=== PATIENT | female | born 1935 | race Caucasian/White ===

== ENCOUNTER 2023-09-13 12:35 | Outpatient (CLI) | payer MEDICARE, SELFPAY ==
--- NOTE | ~2023-09-13 | CT_ITS ---
Noncontrast CT scan of the right shoulder CLINICAL HISTORY: Preoperative planning TECHNIQUE: Axial noncontrast imaging of the shoulder was performed. Sagittal and coronal oblique refo rmatted images were constructed. Dose reduction technique was used on this scan by utilizing automate d exposure control and iterative reconstruction technique. The dose-length product (DLP) was 627.27 m Gy-cm. Findings: No acute fracture or dislocation is seen. There is severe glenohumeral joint osteoarthritis , with diffuse joint space narrowing, reactive sclerosis, and prominent inferomedial humeral head ost eophyte. There is additional bony productive change at the inferior margin of the glenoid. There is m inimal AC joint degenerative change. There is probable subcoracoid bursitis. No other gross soft tissue abnormality seen. IMPRESSION: Severe glenohumeral joint osteoarthritis, as detailed above. Subcoracoid bursitis. Reviewed, dictated and finalized at location . [employer]
== END 2023-09-13 12:36 | disposition home or self-care (01) ==
PROVIDERS: Visit Provider Orthopaedic Surgery
DX: M19.011 Primary osteoarthritis, right shoulder (principal)
CPT/HCPCS: 73200

== ENCOUNTER 2023-11-03 11:36 | Outpatient (CLI) | payer MEDICARE, SELFPAY ==
[2023-11-03 12:40] LABS: Basophils Absolute Auto 0.1 K/mm3 (0.0-0.1); Basophils Percent Auto 1.2 % (0.2-1.2); Eosinophils Absolute Auto 0.1 K/mm3 (0-0.3); Eosinophils Percent Auto 1.4 % (0-4.4); Hematocrit 39.6 % (37.0-47.0); Hemoglobin 13.1 g/dL (12.0-15.0); Immature Granulocyte Absolute 0.04 K/mm3 (0.00-0.031); Immature Granulocyte Percent A 0.5 % (0-0.5); Lymphocytes Absolute Auto 1.37 K/mm3 (0.9-3.2); Mean Corpuscular HGB Conc 33.1 g/dl (32-36); Mean Corpuscular Hemoglobin 30.9 pg (26-34); Mean Corpuscular Volume 93.4 fl (80-100); Mean Platelet Volume 9.4 fl (7.4-10.4); Monocytes Percent Auto 11.2 % (2.6-8.5); Neutrophils Percent Auto 69.7 % (45.5-73.1); Platelet Count Result 206 k/mm3 (150-375); Red Blood Count 4.24 M/mm3 (4.2-5.4); Red Cell Distribution Width 12.4 % (11.5-14.5); White Blood Count 8.6 K/mm3 (4.5-10.0)
[2023-11-03 13:49] LABS: MRSA (PCR) NOT DETECTED (NOT DETECTE)
== END 2023-11-03 11:37 | disposition home or self-care (01) ==
LOC: ANHSURGERY 11:41
PROVIDERS: Visit Provider Orthopaedic Surgery
DX: M19.011 Primary osteoarthritis, right shoulder (principal); Z01.818 Encounter for other preprocedural examination
CPT/HCPCS: 36415; 85025; 87641

== ENCOUNTER 2023-12-01 14:46 | Observation (INO) | payer MEDICARE, SELFPAY ==
--- NOTE | 2023-11-03 11:23 | PC.NURSE ---
PRE-OP INSTRUCTIONS, PLEASE READ CAREFULLY Report to the Outpatient Waiting Room, entrance under the green pavilion located off [facility], at time _0830_ on date _11/30/23_. Planned Procedure Time: _1030_. PACK A SMALL OVERNIGHT BAG AND LEAVE IN THE CAR Time changes happen often and if your time is changed the preop area will call you the afternoon before. - You and your visitor will be asked to self-screen and do not enter if you have any COVID symptoms. - A mask is optional within the hospital at this time. Patients may have clear liquids (water, carbonated beverages, clear teas, apple juice) until 3 hours prior to surgery (0730 AM) with a maximum of 20 ounces. - No food from midnight until time of surgery Take the following medications with a SIP of water the morning of surgery: _SERTRALINE_ DO NOT STOP ANY OF YOUR OTHER PRESCRIPTION MEDICATIONS PRIOR TO SURGERY ?EXCEPT THE FOLLOWING Medications to discontinue per DR. LEGER - _ASPIRIN 7 DAYS PRIOR TO SURGERY, Date to take last dose 12/02/23_ Medications to discontinue per ANESTHESIA - _MULTIVITAMIN 3 DAYS PRIOR TO SURGERY, Date to take last dose 11/26/23_ Please no make-up, nail romanian, hairspray, perfume, deodorant, or body powder the day of surgery. No jewelry (including any body piercings) or valuables the day of surgery, leave them at home. Please take a shower or bath the night before, or the morning of, surgery with an antibacterial soap. Wear comfortable, loose fitting clothing. - Jewelry must be removed prior to entering the operating room. Rings and piercings that are not removed may be cut off. - The hospital will not accept responsibility for valuables. - Please leave all valuables, including medications, at home the day of surgery. If you are going home after surgery, a licensed front load trash truck driver must drive you home. - NO public transportation without another adult if you receive anesthesia. - We recommend that an adult stay with you for 24 hours following discharge. - We also recommend that you do not drive, make important decision, drink alcoholic beverages, or take any drugs that were not prescribed by your health care provider for at least 24 hours after your discharge time. Follow any additional instructions given to you from your surgeon. If you or anyone in your household have experienced Covid symptoms in the past week, please notify your surgeon or the nurse liaison at the phone number below for possible testing. Instructions given to _PATIENT & DAUGHTER_and asked if any additional questions and then verbalized understanding. Patient advised to call surgeon office or pre surgery nurse liaison [phone] if any additional questions.
[2023-11-03 11:58] VITALS: BP 162/70; PULSE 88; RESP 18; TEMP 36.9; O2SAT 99; BMI 21.7
[2023-11-30] VITALS (16 sets, daily range): BP systolic 120–162; BP diastolic 55–73; PULSE 85–96; RESP 13–22; TEMP 36.2–37.2; O2SAT 93–100
[2023-11-30] MEDS: ACETAMINOPHEN 500 MG TABLET 1000 MG PO ×3 (06:31→17:51)
--- NOTE | 2023-11-30 06:32 | WPDANESEPPF ---
Anes - Initial Pre Proc Eval Procedure: Operation Date: 11/30/23 07:30 Proposed Procedures p Right Reverse Total Shoulder Arthroplasty - Gavino Ramirez MD Date/Time: 11/30/23 06:32 Surgeon: Gavino Ramirez MD Pre Op Diagnosis: Prim O A Right Shoulder Patient Data Age: 88 Gender: F Height: 1.7 m Weight: 62.9 kg Last Vital Signs Temp 36.9 C 11/03/23 11:58 Pulse 88 11/03/23 11:58 Resp 18 11/03/23 11:58 BP 162/70 H 11/03/23 11:58 Pulse Ox 99 11/03/23 11:58 O2 Del Method Room Air 11/03/23 11:58 Allergies Allergy/AdvReac Type Severity Reaction Status Date / Time cinnamon Allergy Unknown CHEST Verified 11/03/23 11:54 TIGHTNESS Penicillins Allergy Unknown Swelling Verified 11/03/23 11:54 of Lip/Tongue/Throat Sulfa (Sulfonamide AdvReac Unknown Nausea and Verified 11/29/23 08:15 Antibiotics) Vomiting Home Medications Medication Instructions Recorded Confirmed Type aspirin 81 mg chewable tablet 81 mg PO DAILY 05/29/23 11/30/23 History loratadine 10 mg tablet (Claritin) 10 mg PO DAILY PRN Congestion 05/29/23 11/03/23 History multivitamin 1 tablet PO DAILY 05/29/23 11/30/23 History sertraline 25 mg tablet 25 mg PO DAILY 05/29/23 11/30/23 History cyanocobalamin (vitamin B-12) 500 500 mcg PO DAILY 11/03/23 11/30/23 History mcg tablet sodium chloride 500 mg DAILY 11/03/23 11/30/23 History Patient hx anesthesia problems: none Family hx anesthesia problems: none Results Review: All pre-operative results and documents have been reviewed as part of the pre-operative evaluation. [facility] Past Medical History Medical History History of cataract History of stress test History of tumor rectal Surgical History Surgical History History of carpal tunnel release of both wrists History of cholecystectomy History of left shoulder replacement History of right hip replacement Family History Family History Mother Family history of arthritis Social History Social History Smoking status: Never smoker Second hand tobacco smoke exposure: No Alcohol intake: never Substance use: never Substance use type: does not use Do You Feel Safe in your Home?: Yes Lack of Transportation: No Lack of Food: Never True Current Housing: I Have Housing Concerned About Future Housing: No Difficulty Paying Gas/Electric Bills: No Difficulty Paying for Meds: No Currently Unemployed: No Education: High School Diploma/GED Difficulty w/ Childcare or Family Care: No Living arrangements: with family Additional living arrangements comments: LIVES WITH SPOUSE (EDWIGE) AND DAUGHTER THAT IS BLIND Spiritual care concerns: No Anes - Eval Final PreProcedure Day of Procedure 11/30/23 06:32 Patient weight: normal Heart: regular rate and rhythm Lungs: clear to auscultation Airway: Mallampati scale class II Neurological: alert and oriented Last oral intake: >/= 8 hours ASA classification: II Emergent: no Anesthetic plan: proceed Anesthesia type and monitoring: general ETT and standard monitoring Results Review: All pre-operative results and documents have been reviewed as part of the pre-operative evaluation. Informed Consent: The patient's anesthetic plan and its attendant risks and benefits were discussed with the patient/family/POA. Questions were solicited and answers provided to the satisfaction of the patient/family/POA.
[2023-11-30] MEDS: LACTATED RINGERS 1,000 ML 30 ML IV CONT ×2 (06:35→10:41)
[2023-11-30] MEDS: TRANEXAMIC ACID 1,000MG/ISO100 1,000 MG/100 ML BAG 200 MG IVPB (07:02)
--- NOTE | 2023-11-30 07:36 | SUR.PREOP ---
0730-Pt and family aware Dr. Ramirez delayed r/t traffic delay.
--- NOTE | 2023-11-30 07:55 | WPDHPUPDATE1 ---
History and Physical Update Update Date/Time: 11/30/23 07:55 History and Physical has been reviewed, including an updated exam of the patient. There are NO changes in the patient's condition. Risks, benefits, and alternatives have been discussed and questions answered. Patient agrees to proceed with procedure.
[2023-11-30] MEDS: ceFAZolin 2 GM/D5W 50 ML 2 GM/50 ML BAG IVPB ×2 (08:07→17:50)
[2023-11-30] MEDS: SODIUM CHLORIDE 0.9% IV 37.7 ML, MORPHINE SULFATE INJ (*CRX) 2 MG, ROPivacaine HCL 1% 2... INFILTRATE (09:09)
[2023-11-30] MEDS: VANCOMYCIN HCL 1,000 MG VIAL 1000 MG TOPICAL (09:09)
--- NOTE | 2023-11-30 10:38 | W.PM.PROC2 ---
Procedure Note - Detailed Date of Procedure 11/30/23 Pre-op Diagnosis Prim O A Right Shoulder Post-op Diagnosis Same Procedure Performed Reverse total shoulder arthroplasty, right. Surgeon Gavino Ramirez MD Coal Dumping Equipment Operator Kindra Murcia PA-C Anesthesia General and Regional (Interscalene block.) Findings Severe osteoarthritis. Mild cuff involvement. Osteoporosis. Stem fixation supplemented with cement. Retroversion correction 10 degrees. 5 degree augment. Description of Procedure The patient was given an interscalene block in the preoperative area. Preoperative antibiotics were given. The patient was transferred to the operating room and a general anesthetic was administered. The beach chair position was used at 45 degrees. All bony prominences were padded. The head was carefully stabilized on the [facility] head of marketing adometry. A sterile prep and drape was performed in the usual manner with ChloraPrep. A longitudinal incision was created at the anterior shoulder just lateral to the deltopectoral interval. Hydrogen peroxide was placed on the incision and then rinsed after one minute. Careful dissection was performed to expose the interval and protect the cephalic vein. The vein was retracted medially. The upper border of the pectoralis was released. Anterior circumflex vessel branches were suture ligated. The biceps was tenodesed. A subscapularis tenotomy was performed. The inferior capsule was released, exposing the humeral head. Osteophytes were removed. Care was taken to stay on bone to protect the axillary nerve. The anatomic head cut was taken with the oscillating saw. The guide pin was placed, central drilling performed, and the broach trial inserted. The neck anteversion and inclination were carefully assessed. The cut protector was placed, and attention was turned to the glenoid. Retractors were placed. Releases were carried out for exposure. The subscapularis was mobilized, the inferior capsule and long head of triceps released, and the superior and middle glenohumeral ligaments released as well. Labral tissue was resected as needed. The sizing template was used to assess the baseplate position low on the glenoid. A guide pin was placed. Minimal reaming was used to accomplish a flat surface without violating the subchondral bone. Version was corrected according to preoperative templating. The boss was drilled, and the real component was impacted into position. Supplemental locking screws were placed centrally, superiorly, and inferiorly. The glenosphere was impacted into the taper. The proximal humerus was reamed for the inset component. The humeral components were trialed. The real humeral stem, tray, and insert were impacted into position. The shoulder was copiously irrigated periodically with pulsatile lavage. The shoulder was reduced and stability confirmed. 1 gram of Vancomycin powder was placed in the joint. The biceps tenodesis was incorporated with the pectoralis tendon repair. The deltopectoral space was reapproximated with number 1 Vicryl. The remaining tissue was closed with 0 Quill and 2-0 Quill running suture and steri-strips. A sterile silver occlusive dressing and shoulder immobilizer were placed. The patient was transferred to the recovery room. Physician optometrist assistant, Kindra Murcia PA-C, required for surgery; including patient positioning, draping, tissue retraction, maintaining instrument position, cement removal, wound closure, and dressing placement. Implants Shoulder Innovations reverse TSA size 1 stem. +0 polyethylene insert. 5 degree augmented baseplate. 33+3 mm glenosphere. Estimated Blood Loss 150 Drains No Pathology None sent Complications No immediate complications Condition Stable Disposition PACU [facility] Billing Surgery - Charge Forward: Surgery Billing
[2023-11-30] MEDS: fentaNYL CITRATE INJ (*CRX) 100 MCG/2 ML VIAL 25 MCG IV PUSH ×2 (11:12→11:24)
[2023-11-30] MEDS: HYDROmorphone HCL INJ (*CRX) 1 MG/ML SYR 0.2 MG IV PUSH ×2 (11:43→11:57)
--- NOTE | 2023-11-30 13:32 | ADMGEN ---
This patient, Jeanine Mix, was admitted to 3 Med Surg Room 328-01. Patient/family oriented to hospital policies and general routines including ID bracelet, bed and alarms, visiting hours, pain management, procedures, bathroom and other care routines, personal items, smoking policy, room service/diet, and visiting hours. Information on how to activate the Rapid Response Team has been discussed. Patient/Family are encouraged to report perceived risks to care and to ask questions if they do not understand what they are told or what they should do.
[2023-11-30] MEDS: oxyCODONE HCL (*CRX) 5 MG TAB IR PO (13:41)
[2023-11-30] MEDS: SODIUM CHLORIDE 0.9% IV 1,000 ML 125 ML IV CONT (14:23)
--- NOTE | 2023-11-30 15:42 | PM.IMCN ---
Assessment and Plan Assessment and plan (1) Status post reverse total arthroplasty of right shoulder: Code(s): Z96.611 - Presence of right artificial shoulder joint Status: Acute Assessment and Plan: Primary management by orthopedic team. Had reverse total shoulder arthroplasty of the right done by Ashley CHINO today, 10/30/2023. - ambulate with assistance and up to chair - cold flow therapy - use IS - neurovasc checks - see order for intervals - TEDs and SCDs - resume diet - pain management - zofran PRN for nausea - monitor labs in AM - CBC and BMP - bowel regimen: docusate/senna, polyethylene glycol. Add home Metamucil, BSs currently hypoactive. - maintenance fluids: NS 125 mL/hr x8 hrs - prophylactic atb - Ancef Plan Reversed total shoulder arthroplasty of right side done today, 11/30/2023. Continue pain management, monitor labs, PT/OT eval and treat, and likely discharge tomorrow. Home Meds/Chronic Conditions - anxiety/depression: Continue sertraline. - self started B12 and aspirin at home, hold. - hyponatremia: hold salt tabs, no sodium levels currently available. Ordered. No neuro deficits. Diet: Regular GI Prophylaxis: Famotidine p.o. DVT Prophylaxis: SCDs, TEDs Lines: pIV Code Status: Full Code HPI Date of Consult Consult date: 11/30/23 Requesting Physician: Gavino Ramirez MD Primary Care Provider: Katie Michel Consult Narrative Reason for consult: Medical Managment Narrative: 88 y/o F presented here for surgical management of her advanced glenohumeral arthritis of the right shoulder with PMH of anxiety/depression and hyponatremia. Patient was experiencing painful ROM, reduction in strength, and chronic pain in R shoulder. Received only temporary relief from injections into joint. Previously had left shoulder replacement that was uncomplicated and gave patient great results in 2017. After discussion with orthopedist on 11/03/2023, patient elected to move forward with surgical management. Patient had a reverse total shoulder all or arthroplasty of the right done today, 11/30/2023, by Ashley CHINO. no immediate postop complications. Preop labs on 11/03/2023 showed no anemia and no leukocytosis. Currently denies any post operative nausea or vomiting, no numbness or tingling in RUE/hand, and mild discomfort. Initial VS at presentation: 98.9 F, HR 87, RR 20, 126/73, and 99% on RA. Pre-op imaging: Shoulder CT of right side showed severe glenohumeral joint osteoarthritis and subcoracoid bursitis. Review of Systems Review of Systems: All systems reviewed & are unremarkable except as noted in HPI and below PMFSH Past Medical History Medical History Anxiety and depression Hyponatremia Rectal tumor Surgical History Surgical History History of carpal tunnel release of both wrists History of cataract History of cholecystectomy History of left shoulder replacement History of right hip replacement Family History Family History Mother Family history of arthritis Social History Social History Smoking status: Never smoker Second hand tobacco smoke exposure: No Alcohol intake: never Substance use: never Substance use type: does not use Do You Feel Safe in your Home?: Yes Lack of Transportation: No Lack of Food: Never True Current Housing: I Have Housing Concerned About Future Housing: No Difficulty Paying Gas/Electric Bills: No Difficulty Paying for Meds: No Currently Unemployed: No Education: High School Diploma/GED Difficulty w/ Childcare or Family Care: No Living arrangements: with family Additional living arrangements comments: LIVES WITH SPOUSE (EDWIGE) AND DAUGHTER THAT IS BLIND Spiritual care concerns: No
--- NOTE | 2023-11-30 17:13 | PC.NURSE ---
Brianna Roles watching my patients while I am off the floor for meeting from 1500 to 1630
[2023-11-30] MEDS: SENNA/DOCUSATE SODIUM TABLET 2 TAB PO (17:50)
[2023-11-30] MEDS: MELOXICAM 7.5 MG TABLET PO (17:51)
[2023-11-30] MEDS: ASPIRIN 81 MG ENTERIC TABLET PO (17:51)
[2023-11-30] MEDS: FAMOTIDINE 20 MG TABLET PO (20:49)
[2023-12-01] VITALS: BP 108/63; PULSE 87; RESP 20; TEMP 36.6; O2SAT 96
--- NOTE | ~2023-12-01 | XR_ITS ---
EXAMINATION: XR shoulder RT min 2V DATE: 11/30/2023 11:01 INDICATION: Right reverse total shoulder arthroplasty TECHNIQUE: AP and transscapular Y views of the right shoulder were obtained. COMPARISON: None FINDINGS: Reverse right total shoulder arthroplasty which appears well seated in near-anatomic alignment. No fr acture. Mild osteoarthritis at the right acromioclavicular joint. Expected soft tissue gas at the ope rative bed. Mild linear atelectasis at the right lung base. IMPRESSION: Right reverse total shoulder arthroplasty in near-anatomic alignment, negative for postoperative purp oses. Reviewed, dictated and finalized at location [facility]. [employer] IMPRESSION: Right reverse total shoulder arthroplasty in near-anatomic alignment, negative for postoperative purposes.
[2023-12-01] MEDS: ACETAMINOPHEN 500 MG TABLET 1000 MG PO ×5 (00:17→23:27)
[2023-12-01] MEDS: ceFAZolin 2 GM/D5W 50 ML 2 GM/50 ML BAG IVPB ×2 (00:20→08:27)
[2023-12-01 06:00] VITALS: BP 118/50; PULSE 83; RESP 14; TEMP 36.8; O2SAT 97
[2023-12-01 06:25] LABS: Basophils Absolute Auto 0.1 K/mm3 (0.0-0.1); Basophils Percent Auto 0.5 % (0.2-1.2); Hematocrit 33.9 % (37.0-47.0); Hemoglobin 11.3 g/dL (12.0-15.0); Immature Granulocyte Absolute 0.08 K/mm3 (0.00-0.031); Immature Granulocyte Percent A 0.5 % (0-0.5); Lymphocytes Percent Auto 5.4 % (18.3-44.2); Mean Corpuscular HGB Conc 33.3 g/dl (32-36); Mean Corpuscular Hemoglobin 31.2 pg (26-34); Mean Corpuscular Volume 93.6 fl (80-100); Mean Platelet Volume 9.8 fl (7.4-10.4); Monocytes Absolute Auto 1.7 K/mm3 (0.1-0.6); Monocytes Percent Auto 10.1 % (2.6-8.5); Neutrophils Absolute Auto 13.9 K/mm3 (1.3-6.7); Neutrophils Percent Auto 83.5 % (45.5-73.1); Platelet Count Result 201 k/mm3 (150-375); Red Blood Count 3.62 M/mm3 (4.2-5.4); Red Cell Distribution Width 12.2 % (11.5-14.5); White Blood Count 16.7 K/mm3 (4.5-10.0)
[2023-12-01 06:31] LABS: Anion Gap 5 mmol/L (8-16); Blood Urea Nitrogen 13 mg/dL (7-17); Calcium 8.5 mg/dL (8.4-10.2); Carbon Dioxide 27 mmol/L (22-30); Chloride 96 mmol/L (98-107); Estimated CRCL calculation 55 ml/min; Estimated Glomerular Filt Rate > 60; Glucose 115 mg/dL (65-110); Potassium 3.8 mmol/L (3.4-5.0); Sodium 128 mmol/L (137-145)
--- NOTE | 2023-12-01 07:22 | P.PNAN_ITS ---
Anes - Prog Note Post-Op Date/Time: 12/01/23 07:22 Cardiovascular status: normal Respiratory status: normal Airway patency: baseline Mental status: baseline Post-Op hydration status: normal Vital Signs: Last Vital Signs Temp 98.3 F 12/01/23 06:00 Pulse 83 12/01/23 06:00 Resp 14 12/01/23 06:00 BP 118/50 L 12/01/23 06:00 Pulse Ox 97 12/01/23 06:00 O2 Del Method Room Air 11/30/23 15:24 O2 Flow Rate 10 11/30/23 11:00 Pain Score (VAS): 0 I/O: Intake & Output 11/30/23 11/30/23 12/01/23 15:59 23:59 07:59 Intake Total 550 290 50 Balance 550 290 50 Laboratory Tests 12/01/23 05:32 12/01/23 05:32 11/30/23 12/01/23 06:30 05:32 WBC 16.7 H RBC 3.62 L Hgb 11.3 L Hct 33.9 L MCV 93.6 MCH 31.2 MCHC 33.3 RDW 12.2 Plt Count 201 MPV 9.8 Immature Gran % (Auto) 0.5 Neut % (Auto) 83.5 H Lymph % (Auto) 5.4 L [place] % (Auto) 10.1 H Eos % (Auto) 0.0 Baso % (Auto) 0.5 Lymph # (Auto) 0.90 [place] # (Auto) 1.7 H Eos # (Auto) 0.0 Baso # (Auto) 0.1 Abs Immat Gran (auto) 0.08 H Absolute Neuts (auto) 13.9 H Absolute Nucleated RBC 0.0 Nucleated RBC % 0.0 Sodium 128 L Potassium 3.8 Chloride 96 L Carbon Dioxide 27 Anion Gap 5 L BUN 13 Creatinine 0.60 L Estim Creat Clear Calc 55 Estimated GFR > 60 Glucose 115 H Calcium 8.5 Blood Type A Positive Antibody Screen Negative Post-procedural complaints: none Patient Feedback: Patient satisfied with anesthetic care. Other Findings: sore throat
[2023-12-01] MEDS: SENNA/DOCUSATE SODIUM TABLET 2 TAB PO ×2 (08:30→17:16)
[2023-12-01] MEDS: PSYLLIUM POWDER PACKET 1 PACKET PO (08:30)
[2023-12-01] MEDS: MELOXICAM 7.5 MG TABLET PO ×2 (08:30→17:16)
[2023-12-01] MEDS: SODIUM CHLORIDE 500 MG TABLET BY MOUTH ×2 (08:30→17:16)
[2023-12-01] MEDS: SERTRALINE HCL 25 MG TABLET PO (08:30)
[2023-12-01] MEDS: ASPIRIN 81 MG ENTERIC TABLET PO ×2 (08:30→17:16)
[2023-12-01] MEDS: CYCLOBENZAPRINE HCL 10 MG TABLET PO (08:30)
[2023-12-01] MEDS: SODIUM CHLORIDE 500 MG TABLET PO (08:30)
[2023-12-01] MEDS: FAMOTIDINE 20 MG TABLET PO ×2 (08:30→20:11)
--- NOTE | 2023-12-01 08:31 | PCPTNOTE ---
Attempted to see aptient for PT, however patient was eating breakfast.
--- NOTE | 2023-12-01 09:41 | PM.PNORT ---
Progress Note: A&P Assessment and Plan (1) Status post reverse total arthroplasty of right shoulder: Code(s): Z96.611 - Presence of right artificial shoulder joint Status: Acute (2) Hyponatremia: Code(s): E87.1 - Hypo-osmolality and hyponatremia Status: Acute Plan Postop day 1: Right reverse total shoulder arthroplasty. Patient tolerated procedure well. She does have hyponatremia. Sodium level 128 today. Will continue her sodium tablets. She does feel off balance and dizzy at times. We will see how she does with physical therapy today. Pain manageable with pain medication. No numbness or tingling. She was at home with her who is unable to take care of himself. She also lives with a daughter who is blind. She is concerned about returning home while off balance and dizzy. Subjective Subjective Date/Time Seen: 12/01/23 09:41 Interval history: Patient resting comfortably in bed. She is postoperative day 1 after reverse total shoulder arthroplasty. She notes she feels off balance and dizzy at times. No other complaints. Shoulder has little pain. No numbness or tingling in her fingers. Review of Systems Review of Systems: All systems reviewed & are unremarkable except as noted in HPI and below Exam Narrative: Elderly 88-year-old normal weight female. Resting comfortably in bed. Wearing sling. Dressing dry and intact without drainage. Mild ecchymosis. Mild warmth. Mild swelling. Fires deltoid. Neurovascularly intact. Objective Data Vital Signs Vital Signs: Vital Signs - 24 hr 11/30/23 10:41 11/30/23 10:50 11/30/23 11:00 Temperature Pulse Rate 85 89 87 Respiratory Rate 22 H 22 H 16 Blood Pressure 132/55 L 131/58 L 150/71 H Pulse Oximetry 100 100 99 Oxygen Delivery Simple Face Mask Simple Face Mask Simple Face Mask Oxygen Flow Rate 10 10 10 11/30/23 11:15 11/30/23 11:30 11/30/23 11:45 Temperature Pulse Rate 88 89 87 Respiratory Rate 13 13 14 Blood Pressure 143/66 H 142/62 H 139/62 Pulse Oximetry 97 93 95 Oxygen Delivery Room Air Room Air Room Air Oxygen Flow Rate 11/30/23 12:00 11/30/23 12:15 11/30/23 12:30 Temperature Pulse Rate 90 94 94 Respiratory Rate 13 13 15 Blood Pressure 131/63 138/67 136/64 Pulse Oximetry 95 93 94 Oxygen Delivery Room Air Room Air Room Air Oxygen Flow Rate 11/30/23 15:24 11/30/23 13:00 11/30/23 13:15 Temperature 97.7 F 98.2 F Pulse Rate 96 96 Respiratory Rate 16 18 Blood Pressure 133/63 142/64 H Pulse Oximetry 94 96 Oxygen Delivery Room Air Oxygen Flow Rate 11/30/23 13:45 11/30/23 14:45 11/30/23 18:27 Temperature 97.7 F 97.7 F 97.1 F L Pulse Rate 93 93 94 Respiratory Rate 18 18 18 Blood Pressure 131/62 131/58 L 120/60 Pulse Oximetry 95 94 96 Oxygen Delivery Oxygen Flow Rate 11/30/23 20:00 12/01/23 00:00 12/01/23 06:00 Temperature 98 F 97.8 F 98.3 F Pulse Rate 94 87 83 Respiratory Rate 16 20 14 Blood Pressure 121/59 L 108/63 118/50 L Pulse Oximetry 96 96 97 Oxygen Delivery Oxygen Flow Rate 12/01/23 08:30 Temperature Pulse Rate Respiratory Rate Blood Pressure Pulse Oximetry Oxygen Delivery Room Air Oxygen Flow Rate Intake/Output Intake/Output: Intake & Output 11/28/23 11/29/23 11/30/23 12/01/23 23:59 23:59 23:59 23:59 Intake Total 840 50 Balance 840 50 Meds/Results Medications: Active Medications Generic Name Dose Route Start Last Admin Trade Name Freq PRN Reason Stop Dose Admin Acetaminophen 1,000 mg 11/30/23 13:00 12/01/23 05:17 Acetaminophen 500 Mg Tablet PO 1,000 mg Q6HR DARRIUS Administration Aspirin 81 mg 11/30/23 17:00 12/01/23 08:30 Aspirin 81 Mg Enteric Tablet PO 81 mg BID DARRIUS Administration Cyclobenzaprine HCl 10 mg 11/30/23 12:42 12/01/23 08:30 Cyclobenzaprine Hcl 10 Mg Tablet PO 10 mg Q8H PRN Administration Spasms Diphenhydramine HCl 25 mg 11/30/23 12:42
--- NOTE | 2023-12-01 10:18 | PC.NURSE ---
I spoke with patient regarding the rumors about her isolation status. Family did not request anything. Pt states that she is not immunocompromised. Pt states she is not ill. Pt has a grandson, who does not live with her or visit her at the hospital, who is immunocompromised. She is concerned that she will contract something while in the hospital and could pass it to her grandson if and when she visits him. Pt requests to be on reverse isolation so that she does not contract anything. Pt was educated about immunity, et al.; however, pt insists that she be on reverse isolation so as not to kill her grandson. Reverse isolation initiated.
[2023-12-01 10:27] VITALS: BP 140/54; PULSE 82; RESP 20; TEMP 36.8; O2SAT 98
--- NOTE | 2023-12-01 13:20 | PM.IMCN ---
Assessment and Plan Assessment and plan (1) Status post reverse total arthroplasty of right shoulder: Code(s): Z96.611 - Presence of right artificial shoulder joint Status: Acute Assessment and Plan: Primary management by orthopedic team. Had reverse total shoulder arthroplasty of the right done by Ashley CHINO today, 10/30/2023. - ambulate with assistance and up to chair - cold flow therapy - use IS - neurovasc checks - see order for intervals - TEDs and SCDs - resume diet - pain management - zofran PRN for nausea - monitor labs in AM - CBC and BMP - bowel regimen: docusate/senna, polyethylene glycol. Add home Metamucil, BSs currently hypoactive. - maintenance fluids: NS 125 mL/hr x8 hrs - prophylactic atb - Ancef - 12/01: Continued management by Orthopedics as primary for post-operative pain and further management of shoulder. Elevation of WBC's today to 16.7. Suspect inflammatory response and not a true infectious rise. (2) Hyponatremia: Code(s): E87.1 - Hypo-osmolality and hyponatremia Status: Acute Assessment and Plan: Acute on chronic. Pt has had hyponatremia in the past and does take a salt tablet daily. This was held for surgery, and Sodium is 128. Salt tablet reordered and will check in AM. If greater than or equal to 130, will discharge to continue home meds. HPI Date of Consult Consult date: 12/01/23 Requesting Physician: Gavino Ramirez MD Primary Care Provider: Katie Michel Consult Narrative Narrative: Jeanine Mix is a 88 year old female of which the Hospitalist service is consulted by Orthopedic surgery for management of medical conditions post reverse Right shoulder surgery with Dr. Ramirez yesterday. Pt. reports she feel well and has some pain to the operative shoulder but no other acute complaints or symptoms. Her labs this AM are significant for Sodium of 128. She has been without her Salt tablets as she was NPO for elective surgery. Review of Systems Review of Systems: All systems reviewed & are unremarkable except as noted in HPI and below PMFSH Past Medical History Medical History Anxiety and depression Hyponatremia Rectal tumor Surgical History Surgical History History of carpal tunnel release of both wrists History of cataract History of cholecystectomy History of left shoulder replacement History of right hip replacement Family History Family History Mother Family history of arthritis Social History Social History Smoking status: Never smoker Second hand tobacco smoke exposure: No Alcohol intake: never Substance use: never Substance use type: does not use Do You Feel Safe in your Home?: Yes Lack of Transportation: No Lack of Food: Never True Current Housing: I Have Housing Concerned About Future Housing: No Difficulty Paying Gas/Electric Bills: No Difficulty Paying for Meds: No Currently Unemployed: No Education: High School Diploma/GED Difficulty w/ Childcare or Family Care: No Living arrangements: with family Additional living arrangements comments: LIVES WITH SPOUSE (EDWIGE) AND DAUGHTER THAT IS BLIND Spiritual care concerns: No Meds Home Medications and Allergies Home Medications Medication Instructions Recorded Confirmed Type aspirin 81 mg chewable tablet 81 mg PO DAILY 05/29/23 11/30/23 History loratadine 10 mg tablet (Claritin) 10 mg PO DAILY PRN Congestion 05/29/23 11/03/23 History multivitamin 1 tablet PO DAILY 05/29/23 11/30/23 History sertraline 25 mg tablet 25 mg PO DAILY 05/29/23 11/30/23 History cyanocobalamin (vitamin B-12) 500 500 mcg PO DAILY 11/03/23 11/30/23 History mcg tablet sodium chloride 500 mg DAILY 11/03/23 11/30/23
[2023-12-01 14:27] VITALS: BP 127/46; PULSE 75; RESP 20; TEMP 36.6; O2SAT 96
[2023-12-01 22:00] VITALS: BP 119/46; PULSE 81; RESP 14; TEMP 36.8; O2SAT 95
[2023-12-02] MEDS: ACETAMINOPHEN 500 MG TABLET 1000 MG PO ×2 (05:27→11:38)
[2023-12-02 06:00] VITALS: BP 121/51; PULSE 79; RESP 14; TEMP 36.6; O2SAT 96
[2023-12-02 06:18] LABS: Basophils Absolute Auto 0.1 K/mm3 (0.0-0.1); Basophils Percent Auto 0.8 % (0.2-1.2); Eosinophils Absolute Auto 0.1 K/mm3 (0-0.3); Hematocrit 36.2 % (37.0-47.0); Hemoglobin 11.6 g/dL (12.0-15.0); Immature Granulocyte Absolute 0.06 K/mm3 (0.00-0.031); Immature Granulocyte Percent A 0.6 % (0-0.5); Lymphocytes Absolute Auto 1.48 K/mm3 (0.9-3.2); Lymphocytes Percent Auto 15.3 % (18.3-44.2); Mean Corpuscular Hemoglobin 30.4 pg (26-34); Mean Corpuscular Volume 94.8 fl (80-100); Mean Platelet Volume 9.7 fl (7.4-10.4); Monocytes Absolute Auto 1.1 K/mm3 (0.1-0.6); Monocytes Percent Auto 11.6 % (2.6-8.5); Neutrophils Absolute Auto 6.8 K/mm3 (1.3-6.7); Neutrophils Percent Auto 70.7 % (45.5-73.1); Platelet Count Result 193 k/mm3 (150-375); Red Blood Count 3.82 M/mm3 (4.2-5.4); Red Cell Distribution Width 12.3 % (11.5-14.5); White Blood Count 9.7 K/mm3 (4.5-10.0)
[2023-12-02 06:40] LABS: Alanine Aminotransferase 13 U/L (6-35); Albumin Level 3.3 g/dL (3.5-5.1); Alkaline Phosphatase 53 U/L (38-126); Anion Gap 3 mmol/L (8-16); Aspartate Amino Transferase 36 U/L (14-36); Bilirubin,Total 0.7 mg/dL (0.2-1.3); Blood Urea Nitrogen 14 mg/dL (7-17); Calcium 8.8 mg/dL (8.4-10.2); Carbon Dioxide 31 mmol/L (22-30); Chloride 98 mmol/L (98-107); Estimated CRCL calculation 47 ml/min; Estimated Glomerular Filt Rate > 60; Glucose 88 mg/dL (65-110); Potassium 3.7 mmol/L (3.4-5.0); Sodium 132 mmol/L (137-145)
[2023-12-02] MEDS: SODIUM CHLORIDE 500 MG TABLET BY MOUTH (09:46)
[2023-12-02] MEDS: SERTRALINE HCL 25 MG TABLET PO (09:50)
[2023-12-02] MEDS: FAMOTIDINE 20 MG TABLET PO (09:50)
[2023-12-02] MEDS: ASPIRIN 81 MG ENTERIC TABLET PO (09:50)
[2023-12-02] MEDS: MELOXICAM 7.5 MG TABLET PO (09:50)
[2023-12-02] MEDS: SENNA/DOCUSATE SODIUM TABLET 2 TAB PO (09:50)
[2023-12-02] MEDS: SODIUM CHLORIDE 500 MG TABLET PO (09:50)
[2023-12-02] MEDS: PSYLLIUM POWDER PACKET 1 PACKET PO (09:50)
[2023-12-02] MEDS: polyethylene glycoL 3350 17 GM POWD.PACK PO (09:50)
--- NOTE | 2023-12-02 11:58 | PM.DS ---
DS: Admitting Diagnosis Discharge Date 12/02/2023 Admitting Diagnosis Djd shoulder. DS: Discharge Diagnosis Discharge Diagnosis (1) Status post reverse total arthroplasty of right shoulder: Code(s): Z96.611 - Presence of right artificial shoulder joint Status: Acute (2) DJD of right shoulder: Qualifiers: Osteoarthritis type: primary Qualified Code(s): M19.011 - Primary osteoarthritis, right shoulder Code(s): M19.011 - Primary osteoarthritis, right shoulder Status: Acute (3) Hyponatremia: Code(s): E87.1 - Hypo-osmolality and hyponatremia Status: Acute DS: Summary Hospital Course Reason for hospitalization: Total shoulder arthroplasty. Hospital Course: Tolerated surgery well. Progressed appropriately with therapy. Hyponatremia resolved POD#2 Status at Discharge Functional status at discharge: independent ambulation Overall status at discharge: patient is progressing back to baseline Time Spent with Patient Time attestation: Total time spent providing and/or coordinating discharge services: Exam Const: General: no acute distress Resp: Effort & Inspection: normal respiratory effort Skin: Other: Wound healing well. Mepilex dressing intact. No hematoma or drainage. Sling applied appropriately. Deltoid muscle fires. Axillary nerve sensation intact. Good bag filler strength. No edema. radial pulse palpable. Neuro: Motor exam (neuro): 5/5 motor strength present throughout Sensory Exam: normal sensation Psych: Mental Status: mental status grossly normal Speech and movement: Normal speech and movement present DS: Data Data Completed and Pending Labs on day of discharge: Labs from last 24 hours 12/02/23 12/02/23 05:37 05:31 WBC 9.7 RBC 3.82 L Hgb 11.6 L Hct 36.2 L MCV 94.8 MCH 30.4 MCHC 32.0 RDW 12.3 Plt Count 193 MPV 9.7 Immature Gran % (Auto) 0.6 H Neut % (Auto) 70.7 Lymph % (Auto) 15.3 L Barton % (Auto) 11.6 H Eos % (Auto) 1.0 Baso % (Auto) 0.8 Lymph # (Auto) 1.48 Barton # (Auto) 1.1 H Eos # (Auto) 0.1 Baso # (Auto) 0.1 Abs Immat Gran (auto) 0.06 H Absolute Neuts (auto) 6.8 H Absolute Nucleated RBC 0.0 Nucleated RBC % 0.0 Sodium 132 L Potassium 3.7 Chloride 98 Carbon Dioxide 31 H Anion Gap 3 L BUN 14 Creatinine 0.70 Estim Creat Clear Calc 47 Estimated GFR > 60 Glucose 88 Calcium 8.8 Magnesium 2.0 Total Bilirubin 0.7 AST 36 ALT 13 Alkaline Phosphatase 53 Total Protein 6.0 L Albumin 3.3 L Discharge Plan Discharge Attending physician on discharge: Gavino Ramirez Consulting providers: Erna Sigala; Alena Hurst Discharging Clinician: Gavino Ramirez Patient Disposition: Home Health Service Activity: february shower Diet: as tolerated Wound Care Instructions: follow printed instructions Discharge Instructions: See green instruction sheets Care Coordination: Patient to have [facility] PT/OT eval and treat, and custodial. They can be reached at [phone] if you have any questions. They will call you to schedule their first visit. RN Please fax discharge instructions to [phone]. Patient Instructions: Antibiotic Form Stand Alone Forms: General Discharge Information, General Discharge Instructions Follow-up/Referrals: Kindra Murcia PA [Physician Analysis Intern] - Discharge Medications: New meloxicam 15 mg tablet 15 mg PO DAILY Qty: 30 0RF Rx Instructions: Cut in half. Take 1/2 in morning and 1/2 at night. Take with food. Stop if stomach upset. aspirin 81 mg tablet,delayed release (DR/EC) 81 mg PO BID 14 Days Qty: 28 0RF oxycodone-acetaminophen 5-325 mg tablet 1 - 2 tablet PO Q4-6H MDD 6 PRN (Reason: pain) Qty: 30 0RF Continued multivitamin Tablet 1 tablet PO DAILY aspirin 81 mg tablet,chewable 81 mg PO DAILY sertraline 25 mg ta
[2023-12-02 13:30] VITALS: BP 141/64; PULSE 87; RESP 18; TEMP 36.4; O2SAT 98
== END 2023-12-02 13:50 | disposition home health service (06) ==
LOC: ANHSURGERY 15:11 → ANH3MEDSUR 15:11
PROVIDERS: Nurse Practitioner Adult Health; Physician Assistant Surgical; Admitting Provider Orthopaedic Surgery; Visit Provider Orthopaedic Surgery
PROC: (CPT 23472; principal; 2023-11-30 07:30)
DX: M19.011 Primary osteoarthritis, right shoulder (principal); E87.1 Hypo-osmolality and hyponatremia; M81.0 Age-related osteoporosis without current pathological fracture; F41.9 Anxiety disorder, unspecified; F32.A Depression, unspecified; Z79.82 Long term (current) use of aspirin; Z96.612 Presence of left artificial shoulder joint; Z79.891 Long term (current) use of opiate analgesic; Z79.899 Other long term (current) drug therapy
CPT/HCPCS: 23472; 36415; 73030; 80048; 80053; 83735; 85025; 86850; 86900; 86901; 97110; 97116; 97161; 97165; 97530; 97535; A4565; A9270; C1776; G0378; J0171; J0690; J1100; J1170; J1885; J2270; J2405; J2704; J2795; J3010; J3370; J7030; J7120